=== PATIENT | male | born 1995 | race Two or more races ===

== ENCOUNTER 2023-03-15 17:38 | Emergency (ER) | payer SELFPAY ==
[~2023-03-15] VITALS: Ht 180.3 cm; Wt 88.6 kg
[2023-03-15 17:40] VITALS: TEMP 98.8
[2023-03-15 20:14] VITALS: BP 124/68; PULSE 67; RESP 16
== END 2023-03-15 20:14 | disposition home or self-care (01) ==
LOC: EMS 17:41
DX: D18.09 Hemangioma of other sites (principal); F12.90 Cannabis use, unspecified, uncomplicated
CPT/HCPCS: 99281; Z7502